=== PATIENT | male | born 1985 | race Caucasian/White ===

== ENCOUNTER 2017-05-11 14:21 | Inpatient (IN) | payer OTHER ==
[2017-05-11 15:21] LABS: BASO % 0.2 % (0-2); EOS % 2.5 % (0-7); EOSINOPHIL ABSOLUTE COUNT 0.3 tho/cmm (0.0-0.7); HCT-HEMATOCRIT 43.2 % (36.0-53.5); HGB-HEMOGLOBIN 15.1 gm/dl (13.5-17.0); IMMATURE GRANULOCYTES ABSOLUTE 0.07 tho/cmm (0-0.03); IMMATURE GRANULOCYTES PERCENT 0.7 % (0-0.3); LYMPH ABSOLUTE COUNT 1.8 tho/cmm (0.8-4.5); MCH (MEAN CORPUSCULAR HGB) 30.1 pg (28.0-32.0); MCV (MEAN CELL VOLUME) 86.2 fl (82.0-96.0); MEAN PLATELET VOLUME 10.8 cmc (9.4-12.4); MONO % 4.4 % (0-12); MONOCYTE ABSOLUTE COUNT 0.5 tho/cmm (0.0-1.2); NEUTROPHIL ABSOLUTE COUNT 7.8 tho/cmm (1.6-8.0); NEUTROPHIL-AUTOMATED 7.8 tho/cmm (1.6-8.0); NEUTROPHILS % 75.2 % (40-80); PLATELET COUNT 188 tho/cmm (150-450); RED BLOOD COUNT 5.01 mil/cmm (4.40-5.70); RED CELL DISTRIBUTION WIDTH 12.5 % (12.4-16.4); WHITE BLOOD COUNT 10.4 tho/cmm (4.0-10.0)
[2017-05-11 15:35] LABS: ANION GAP 11 mmol/L (0-20); BLOOD UREA NITROGEN 15 mg/dl (6-24); CALCIUM 8.1 mg/dl (8.5-10.5); CARBON DIOXIDE-VENOUS 26 mmol/L (22-32); CHLORIDE 109 mmol/l (96-110); GLUCOSE 88 mg/dL (70-110); POTASSIUM 3.7 mmol/L (3.7-5.1); SODIUM 142 mmol/L (135-145); eGFR VALUE FOR BLACK >90 mL/Min
[2017-05-12] MEDS ORDERED: HYDROCODON-ACE1 EA16 PO (09:36)
[2017-05-28] MEDS ORDERED: NO MEDICATION (11:50)
[2017-05-30] MEDS ORDERED: HYDROCODON-ACE1 EA16 PO (09:54)
[2017-07-03] MEDS ORDERED: NEURONTIN300 M1 PO (09:00)
[2017-07-17] MEDS ORDERED: NO HOME MEDICATION (08:30)
== END 2017-05-12 11:15 | DRG 578 ==
LOC: BURN 14:21 → ORW 20:04 → PACU 20:47 → BURN 21:30
PROVIDERS: ADMIT Surgery
PROC: 0HR Skin and Breast, Replacement (ICD-10-PCS; principal; 2017-05-11)
PROC: 0JBJ0ZZ Excision of Right Hand Subcutaneous Tissue and Fascia, Open Approach (ICD-10-PCS; 2017-05-11)
PROC: 0X3 Anatomical Regions, Upper Extremities, Control (ICD-10-PCS; 2017-05-11)
DX: S61.401A Unspecified open wound of right hand, initial encounter (principal); W31.89XA Contact with other specified machinery, initial encounter; Y92.63 Factory as the place of occurrence of the external cause
CPT/HCPCS: J0171; J1580; J2250; J2270; J3010; J3260; J3370; J7050; Q4104